=== PATIENT | male | born 1950 | race Caucasian/White ===

== ENCOUNTER 2017-04-25 10:23 | Day surgery (SDC) | payer MEDICARE, BC ==
[2017-04-19 11:47] VITALS: BMI 28.3
[~2017-04-25 10:23] MED LIST: LACTATED RINGERS 1,000 ML IV SCH
[2017-04-25] MEDS: PHENYLEPHRINE 10% OPHTH DROPS 5 ML BTL OP ONE ×3 (11:25→11:43)
[2017-04-25] MEDS: CYCLOPENTOLATE 1% OPHTH SOLN 2 ML BTL OP ONE ×3 (11:28→11:46)
[2017-04-25] MEDS: KETOROLAC 0.5% OPHTH DROPS 5 ML BTL OP ONE ×3 (11:31→11:49)
[2017-04-25 11:39] VITALS: TEMP 97.9
[2017-04-25] MEDS ORDERED: LIDOCAINE 1% INJ 10MG/ML (20 ML MDV) ONE (12:23)
[2017-04-25] MEDS ORDERED: PROPOFOL 10 MG/ML 20 ML VIAL IV ONE (12:23)
[2017-04-25] MEDS ORDERED: EPINEPHrine (PF) 0.5 ML in BALANCED SALT IRRIG SOLN COMB2 500 ML IRRIGATION ONE (12:32)
[2017-04-25] MEDS ORDERED: BALANCED SALT IRRIG SOLN COMB2 15 ML IRRIG.SOLN INTRAOCULA ONE (12:32)
[2017-04-25] MEDS ORDERED: TIMOLOL 0.5% OPHTH SOLN (PF) 0.2 ML DROPERETTE RIGHT EYE ONE (12:33)
[2017-04-25] MEDS ORDERED: HYALURONATE SODIUM INTRAOCULAR 1 EACH SYRINGE (10MG/ML) INTRAOCULA ONE (12:33)
--- NOTE | 2017-04-25 12:47 | P.OP ---
Date of Procedure: 04/25/17 Procedure(s) Performed: PREOPERATIVE DIAGNOSIS: Cataract, right eye. POSTOPERATIVE DIAGNOSIS: Cataract, right eye. OPERATION: Phacoemulsification cataract, right eye. DESCRIPTION OF PROCEDURE: The patient was taken to the preoperative holding area. Intravenous Propofol was given so as to bring about adequate sedation. The following mixture was given for local anesthesia: 5 mL of 2% lidocaine, 5 mL of 0.75% Marcaine, and 1 mL of Wydase. Approximately 4 mL was injected in the retrobulbar space of the surgical eye. Additional 1 mL was then directed to the temporal area of the surgical eye. This was performed to allow adequate neurological block of the facial muscles. The patient was revived and then taken into the operative room. The patient was prepped and draped in the usual sterile manner for the operative eye. A lid speculum was put into position. The conjunctiva was resected back from the limbus in the 12 o'clock position. Bleeding was controlled with electrocautery. A #69 blade was then used and a half-thickness scleral incision approximately 1-mm posterior to the limbus was made on bare sclera. This was shelved in the clear cornea using a crescent knife. Next a 15-degree blade was used to make a stab incision at the 3 o' clock position at the corneolimbal interface. Keratome blade was then used and the superior wound was extended into the anterior chamber. Viscoelastic was injected into the anterior chamber and to maintain its form. Next, a cystotome was used and a continuous anterior capsulotomy was made without difficulty. Hydrodissection using a blunt cannula and BSS was performed. Phaco probe was then employed and a groove extending from 12 to 6 o'clock in the lens was created. A Michael wand was used through the stab incision so as to perform a divide and conquer technique. Next an irrigation aspiration probe was utilized and any residual cortex was removed from the eye. Again, viscoelastic was injected into the anterior chamber. An Willian posterior chamber lens implant was placed in the cartridge and injected into the anterior chamber without difficulty. The Sinstuddexey hook was utilized to spin the lens into position and this was again performed without any difficulty. The irrigation and aspiration probe was again employed and any residual viscoelastic was removed from the eye. Then BSS was injected into the limbal stab incision and the anterior chamber re-inflated. The conjunctiva was reapproximated using electrocautery. One drop of 0.25% Timoptic was placed over the corneal along with TobraDex ophthalmic ointment. Two sterile patches and a Mcfadden eye shield were taped into position. The patient was transported to the recovery room in stable condition. Pathology: none sent Condition: stable Disposition: same day
[2017-04-25 12:52] VITALS: RESP 18
[2017-04-25 13:16] VITALS: BP 157/78; PULSE 68
[2017-04-25] MEDS ORDERED: BUPIVACAINE (PF) 0.75% 5 ML, LIDOCAINE 4% (PF) 5 ML, HYALURONIDASE, HUMAN RECOMB 150 UNIT MISCELLANE ONE ×3 (23:00)
[2017-04-25] MEDS ORDERED: GENTAMICIN/PREDNISOL AC OPHTH OINT 3.5GM OPHTHALMIC ONE (23:00)
[2017-04-25] MEDS ORDERED: TIMOLOL 0.5% OPHTH SOLN (PF) 0.2 ML DROPERETTE OP ONE (23:00)
== END 2017-04-25 13:36 | disposition home or self-care (01) ==
LOC: OR 10:23
PROVIDERS: ATTEND Ophthalmology
DX: H26.9 Unspecified cataract (principal); K52.9 Noninfective gastroenteritis and colitis, unspecified; I10 Essential (primary) hypertension; Z79.82 Long term (current) use of aspirin; Z79.899 Other long term (current) drug therapy
CPT/HCPCS: 66984; V2632; J2001 ×2; J3470; J0171; J2704

== ENCOUNTER → 2024-11-26 | Outpatient (CLI) | payer MEDICARE ==
[2024-11-26 14:49] LABS: INR 0.9 (<1.2); Partial Thromboplastin Time 23.4 sec (22.0-30.0); Prothrombin Time 10.4 sec (10.0-12.5)
[2024-11-26 20:47] LABS: ALT 25 U/L (10-49); AST 23 U/L (14-35); Albumin 4.4 g/dL (3.8-4.9); Alkaline Phosphatase 81 U/L (41-126); BUN/Creat Ratio 17.64 Ratio (12.00-20.00); Blood Urea Nitrogen 19.4 mg/dL (9.0-27.0); Calcium 9.5 mg/dL (8.7-10.3); Carbon Dioxide 24.9 mmol/L (21.6-31.8); Chloride 106 mmol/L (96-109); Globulin 2.2 g/dL (1.6-3.3); Glucose 115 mg/dL (70-110); Potassium 4.5 mmol/L (3.5-5.5); Sodium 141 mmol/L (135-145); Total Bilirubin 0.5 mg/dL (0.3-1.2); Total Protein 6.6 g/dL (6.2-8.2)
[2024-11-26 20:58] LABS: HCT 43.4 % (39.6-50.0); HGB 14.5 g/dL (13.0-17.0); MCH 31.3 pg (27.0-32.0); MCHC 33.4 g/dL (32.0-37.0); MCV 93.7 FL (80.0-97.0); Mean Platelet Volume 12.4 FL (9.5-12.2); NRBC Per 100 WBC 0 X 10*3/uL (0.00-0.01); Platelet Count 168 X 10*3/uL (140-440); RBC 4.63 X 10*6/uL (4.40-5.60); RDW 13.2 % (11.5-14.5); WBC 7.27 X 10*3/uL (4.50-10.00)
== END | disposition home or self-care (01) ==
LOC: LABPAT 13:55
PROVIDERS: ATTEND Orthopaedic Surgery
DX: Z01.818 Encounter for other preprocedural examination (principal); Z22.322 Carrier or suspected carrier of Methicillin resistant Staphylococcus aureus; M16.12 Unilateral primary osteoarthritis, left hip
CPT/HCPCS: 80053; 85027; 85610; 85730; 86850; 86900; 86901; 87070

== ENCOUNTER 2024-12-04 11:10 | Day surgery (SDC) | payer BC, MEDICARE ==
[~2024-12-04 11:10] MED LIST changes: +HYDROmorphone 0.5 MG/0.5 ML SYRINGE IVP PRN; -LACTATED RINGERS 1,000 ML IV SCH; +TRANEXAMIC 1,000 MG/100ML-NACL 1,000 MG in SALINE 1 100ML.BAG IV PRN; +TRANEXAMIC 1,000 MG/100ML-NACL 1,000 MG in SALINE 1 100ML.BAG IVPB PRN
[2024-12-04] MEDS: IV FLUID CONTINUATION 1,000 ML IV ONE ×3 (11:23→15:20)
[2024-12-04] MEDS: DOCUSATE 100 MG CAP PO PRN (11:46)
[2024-12-04] MEDS: oxyCODONE ER 10 MG TAB.ER.12H PO PRN (11:47)
[2024-12-04] MEDS: ACETAMINOPHEN TAB 500 MG TAB PO PRN (11:47)
[2024-12-04] MEDS: FAMOTIDINE 20 MG/2 ML VIAL IVP PRN (11:53)
[2024-12-04] MEDS: DEXAMETHASONE SOD PHOSPHATE 10 MG/ML 1 ML VIAL IV PRN (11:53)
[2024-12-04] MEDS: LACTATED RINGERS 1,000 ML IV SCH (11:53)
[2024-12-04] MEDS: ONDANSETRON 4 MG/2 ML VIAL IVP PRN (11:54)
[2024-12-04] MEDS: KETOROLAC 15 MG/ML 1 ML VIAL IVP PRN (11:54)
[2024-12-04] MEDS ORDERED: VANCOMYCIN IV PER PHARMACY 1 EACH MISC MISCELLANE PRN (12:07)
[2024-12-04] MEDS: MIDAZOLAM 2 MG/2 ML VIAL IV ONE (12:25)
[2024-12-04] MEDS: fentaNYL (PF) 50 MCG/ML 2 ML AMP IV PRN (12:25)
[2024-12-04] MEDS: VANCOMYCIN 1,250 MG in SODIUM CHLORIDE 0.9% 250 ML IVPB STA (12:35)
[2024-12-04] MEDS: ceFAZolin 2 GM in DEXTROSE 5% IN WATER 50 ML IVPB PRN (12:46)
[2024-12-04] MEDS: ROPIVACAINE/EPI/CLONIDINE/KET 50 ML SYRINGE MISCELLANE PRN (13:06)
--- NOTE | 2024-12-04 13:06 | P.ANPRN ---
Procedure Note - Anesthesia - Nerve Block Performed Left Gio Single Time Out Performed: Yes Date of Procedure: 12/04/24 Procedure Start Time: : Procedure Stop Time: : Location of Patient: PreOp Indication: Acute Post-Operative Pain, Requested by Surgeon Sedation Type: Sedate with meaningful contact maintained Preparation: Sterile Prep Position: Supine Needle Types: Pajunk Needle Gauge: 21 Ultrasound used to visualize needle placement: Yes Ultrasound used to observe medication spread: Yes Injectate: 0.5% Ropivacaine (see comment for volume) (30 ml + 4 mg Dexamethas one) Blood Aspirated: No Pain Paresthesia on Injection Noted: No Resistance on Injection: Normal Image Stored and Saved: Yes Events: Uneventful and Well Tolerated
[2024-12-04] MEDS: VANCOMYCIN 1,000 MG VIAL MISCELLANE ONE (15:45)
--- NOTE | 2024-12-04 16:27 | FL ---
EXAMINATION TYPE: FL guidance operating room, XR Hip Limited LT DATE OF EXAM: 12/04/2024 FLUOROSCOPY anterior hip dap 1.2175 fl time 33.2 7 images sent [address] PACS Dr Esposito 7 images are provided for intraoperative fluoroscopy during left hip total arthroplasty. There is silver cement of acetabular cup with single screw and femoral stem components for the severe left hip osteop orosis. Final image shows gross anatomic alignment. Multiple surgical clips on both sides of the pelv is. [facility], , 12/04/2024 4:24 PM
--- NOTE | 2024-12-04 16:33 | P.OP ---
Date of Procedure: 12/04/24 Preoperative Diagnosis: 1. Severe left hip osteoarthritis 2. 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 History of colostomy 4. History of staph infection Postoperative Diagnosis: 1. Severe left hip osteoarthritis 2. 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 History of colostomy 4. History of staph infection Procedure(s) Performed: 1. Left direct anterior conversion total hip arthroplasty (conversion of hip pinning to total hip arthroplasty) 2. Application of negative pressure incisional wound VAC, left hip, DME, incision 15 cm, less than 50 cm Modifier 22 for increased procedural complexity: Justification: This operation required significantly more time, work, and procedural complexity than a standard primary or revision total joint arthroplasty. Specifically the prior traumatic changes and or surgical procedure left a significantly altered surgical field with resultant scar tissue, adhesions, and altered anatomy that required a longer and more difficult and complex surgical dissection. This patient required: Technically demanding removal of prior hardware Osteotomy for implant removal and exposure Significantly prolonged operative time All of the above result in a physically and mentally challenging operative procedure that in my professional opinion necessitates a 30% increase above standard the schedule Implants: 1. Umang Trident II Acetabular Cup, Size #52 2. Umang Accolade C Size # 5 Femoral Stem, /High Offset 3. Biolox delta femoral head, 36 mm, - 2.5 mm neck Anesthesia: VINH Surgeon: Romero Esposito Cyber Security Consultant #1: Roe Greene Estimated Blood Loss (ml): 300 IV fluids (ml): 800 Pathology: none sent Condition: stable Disposition: PACU Indications for Procedure: The patient is a very pleasant 73-year-old male who presented to my office with severe left hip arthritis. Briefly the patient underwent left hip pinning for a left hip SCFE by Dr. Mclean in the 1960s. He did well for several decades but then developed end-stage arthritis. In addition to the patient's left hip arthritis he also has a history of a colostomy and prior infections. He states that he has not had any staph infections in at least 5 years but does have a history of getting infections after surgery. My recommendation was to proceed with a left total hip replacement, converting his prior hip pinning to a total hip arthroplasty. The patient understands his elevated risk of having a complication due to the complexity of surgery and his medical risks. I had a long discussion with the patient in the office on the potential risks and complications of an elective total hip replacement through a direct anterior approach. Risks discussed include, but are certainly not limited to, risks from anesthesia, superficial infection requiring local wound care or antibiotics, deep phil-prosthetic joint infection and the treatment required to eradicate infection, intraoperative fracture, postoperative periprosthetic fracture, damage to local blood vessels or nerves particularly the lateral femoral cutaneous nerve, delayed wound healing requiring local wound care or possibly surgical debridement, hip dislocation, leg length discrepancy, soft tissue irritation around the total hip implant such as iliopsoas tendinitis or trochanteric bursitis, wear and osteolysis from the implants, squeaking or audible noises, groin pain, thigh pain, heterotopic ossification, stiffness, aseptic loosening of the implants, dissatisfaction with surgical outcome, need for revision surgery, DVT, PE, swelling of the operative extremity, acute coronary event, stroke, failure to thrive, and possibly loss of life or limb. The patient understands that while these are the most common complications after an elective hip replacement there are certainly other less common complications possible. They were given ample time to ask questions regarding the potential complications of a hip replacement. Following our discussion the patient provided their verbal and written consent to go forward with an elective total hip replacement. Operative Findings: The patient had severe hip osteoarthritis. The pin in the left hip was completely overgrown with bone laterally. Description of Procedure: The patient was identified in the preoperative holding area and the correct hip was marked with my initials. I reviewed the procedure and consent with the patient. All of their questions were answered. The patient was then brought back into the operating room by anesthesia. While on the [facility] anesthesia was administered by the anesthesia team. Preoperative antibiotics and tranexamic acid were also given. After the patient was under anesthesia I examined their ankles to determine their preoperative leg length discrepancy. The skin over the anterior aspect of the hip was shaved to remove hair over the site of planned incision. Both feet and ankles were padded with webril and boots for the Ola were applied. The patient was then carefully transferred onto the Ola table. A perineal post was immediately placed. The arms were placed on arm holders and were well-padded. Both boots were secured to the spars on the Ola table. The patient was positioned so that the pelvis was centered over the post. Nonsterile drapes were applied. A timeout was performed identifying the correct patient, operative extremity, and procedure. At this point fluoroscopy was brought in to take preoperative images of the pelvis and operative hip. Usi ng the standing AP pelvis from the office as a template, a comparable image was obtained with fluoroscopy. A metallic bar was used to create a bi-ischial line for use as a reference to leg length adjustments during the procedure. Global offset was also measured on both the operative and nonoperative leg. Fluoroscopy was then brought out and a pre-scrub using a chlorhexidine scrub brush was performed. The operative limb was then prepped and draped in the standard sterile fashion. An anterior longitudinal incision was made lateral and distal to the ASIS. The skin and subcutaneous tissues were incised sharply. The underlying tensor fascia was identified and incised in its midportion. The fascia was dissected free from the underlying muscle and the muscle belly was retracted. A blunt tipped cobra retractor was placed over the superior neck under the muscle fibers of the gluteus minimus. The deep enveloping fascia of the tensor was incised. The anterior leash of vessels were then identified and cauterized. The fascia between the rectus and the capsule was then incised and the pre-capsular fat was excised. A second Cobra was placed inferior to the neck. The interval between the rectus and iliocapsularis and the hip capsule was developed and a retractor was placed carefully over the anterior rim of the acetabulum. A T-shaped anterior capsulotomy was performed. The superior capsular leaflet was left in place in the inferior capsular flap was excised. The Cobra retractors were placed intracapsularly. We then made a femoral neck osteotomy according to preoperative and intraoperative templating and confirmed the level of the osteotomy using fluoroscopic imaging. The superior capsular flap was excised. At this point a second osteotomy was made with a saw just proximal in the neck to the prior osteotomy. The saw was used to carefully remove bone around the screw. The napkin ring of bone was carefully removed. It took significant operative time to carefully remove all of the bone around the screw. The femoral head was also removed piecemeal. Once the screw was exposed and the head had been removed piecemeal I gently dislocated the screw from the aceta bulum and dropped the leg using the table. I carefully tried using a bone tamp and mallet to remove the screw through the lateral cortex of the femur but was unable to do so. The leg was then carefully brought up and the screw placed in the socket. 2 cm of the lateral incision over the prior scar were made and dissection was carried down carefully to the lateral cortex of the femur. Using fluoroscopy the location of the screw was identified. It had been completely overgrown with bone. It was exceedingly difficult and tedious requiring extended operative time but I was able to carefully remove all of the bone around the base of the screw and I ultimately had to make an osteotomy of the bone around the screw head using osteotomes and a curette. Attention was then placed back to the anterior incision. The leg was dropped and I gently tried tapping the screw out of the lateral femur. I was still unable to do so due to the size of the threads and embedded bone. At this point using a mahad tipped [employer] saw the screw was cut just distal to the threads. The threaded portion of the screw was then removed. Using a bone tamp and a mallet the smooth portion of the screw was carefully tapped out the lateral cortex of the femur. Fluoroscopy was used to make sure there were not any inadvertent fractures. Bone wax was pressurized into the lateral femur at the site of the screw hole. Attention was then placed back to the acetabulum. Retractors were placed circumferentially exposing the acetabulum. We then circumferentially debrided the acetabulum free of labrum and osteophytes. The pulvinar was removed to fully visualize the cotyloid fossa. We then sequentially reamed to achieve peripheral fit and excellent bleeding subchondral bone. The socket was thoroughly irrigated. The acetabular component was impacted into the appropriate position using fluoroscopy to guide version, inclination, and depth of insertion taking care to have a comparable image of the AP pelvis to the standing image taken in the office. An excellent press-fit was achieved and final position was confirmed using fluoroscopy. The press fit was augmented with bony cancellus dome screws. The liner was then impacted into the socket. Attention was then turned to the femur. The remnant dorsal lateral capsule was excised. The short external rotators were visible and protected. A bone hook was used to confirm appropriate translation of the trochanter away from the acetabulum. The leg was then extended and adducted and the bone hook was used to elevate the femur for broaching. On inspection of the patient's proximal femur, they appeared to have poor bone quality so I elected to proceed with cemented fixation of the femoral component. A box osteotome and blunt tipped canal sound was then utilized to gain access to the femoral canal. We then sequentially broached the femur in appropriate anteversion until torsional stability was achieved and the implant was felt to have reached the appropriate size to allow trialing. The neck cut was brought flush to the trial broach with a calcar planar. A trial neck and head were then placed onto the broach and the hip was atraumatically reduced under direct visualization. External rotation to 90 was performed to assess stability. Fluoroscopy was brought in. An AP and lateral fluoroscopic image of the proximal femur was obtained to assess position and fill of the trial broach. An AP of the pelvis was then obtained and matched to the preoperative image taken. A bi-ischial bar was then placed and measurements were taken to assess changes in length and offset. The hip was then carefully dislocated, the proximal femur was exposed, and the trial implants were removed. The proximal femur was then prepared for cementing. The canal was thoroughly irrigated with pulsatile lavage to remove blood and marrow contents. A cement restrictor was placed to a depth just distal to the tip of the final implant. Epinephrine-soaked gauze was then packed into the proximal femur. 2 bags of cement were then mixed using a centrifuge and placed into a cement gun. Anesthesia was notified that cementing was about to commence to make sure the patient was appropriately ventilated and hydrated. Once the cement had reached appropriate consistency, the cement gun was used to fill the canal in a retrograde fashion starting at the restrictor. Cement was then pressurized into the canal with a blue tipped dye jig operator. The stem was then carefully introduced into the cement taking care to guide the implant into appropriate version. The stem was held in position until the cement had fully set. All extra cement was removed while the cement was hardening. The trunnion was cleansed and the final head was tapped into place to engage the Chavez taper. The acetabulum was irrigated and visualized to be free of debris. The hip was carefully reduced. Stability was checked clinically with external rotation to 90 and there was no evidence of instability. Final fluoroscopic images were taken. The wound was then thoroughly irrigated and soaked with a dilute Betadine rinse for 3 minutes. 3 L of sterile saline was irrigated through the wound using pulsatile lavage. Local anesthetic cocktail was injected into the soft tissues around the surgical field. 2 g of vancomycin was placed both in the anterior and lateral incision . the wound was then closed in layers. Due to the patient's risk factors an incisional wound VAC was placed over the closed anterior hip and a sterile dressing was placed over the lateral surgical incision. The drapes were taken down and the patient was carefully transferred off of the Ola table. Following removal of the boots the leg lengths felt acceptable. The patient was then taken to recovery room having tolerated the procedure well. Roe Greene PA-C was required as a skilled printer's assistant due to the complexity of surgery for patient positioning, draping, exposure, retraction, closure of wound and application of dressing. PLAN: The patient can weight-bear as tolerated on the operative extremity. 2 doses of postoperative antibiotics. DVT prophylaxis with aspirin 81 mg twice a day based on preoperative risk stratification. Physical therapy for gait training. The patient will be treated with doxycycline 100 mg twice daily for 6 weeks or until his incisions are healed.
[2024-12-04] MEDS ORDERED: HYDROmorphone 0.5 MG/0.5 ML SYRINGE IVP PRN ×3 (16:42)
[2024-12-04] MEDS ORDERED: MAGNESIUM HYDROXIDE 2,400 MG/30 ML CUP PO PRN (16:42)
[2024-12-04] MEDS ORDERED: ONDANSETRON 4 MG/2 ML VIAL IVP PRN (16:42)
[2024-12-04] MEDS ORDERED: NALOXONE 0.4 MG/ML 1 ML VIAL IV PRN (16:42)
[2024-12-04] MEDS: SODIUM CHLORIDE 0.9% 1,000 ML IV SCH (18:55)
[2024-12-04] MEDS: ASPIRIN 81 MG PO SCH (20:35)
[2024-12-04] MEDS: SENNOSIDES-DOCUSATE SODIUM 1 EACH TAB PO SCH (20:35)
[2024-12-04] MEDS: ceFAZolin 2 GM in DEXTROSE 5% IN WATER 50 ML IVPB SCH (20:35)
[2024-12-04] MEDS: HYDROcodone/APAP 5-325MG 1 EACH TAB PO PRN (21:44)
[2024-12-04] MEDS: METOPROLOL SUCCINATE (ER) 25 MG TAB.ER.24H PO SCH (21:45)
[2024-12-04] MEDS: hydrALAZINE HCL 50 MG TAB PO SCH (21:47)
[2024-12-04] MEDS: DORZOLAMIDE-TIMOLOL 2.23%/0.68 10ML BTL LEFT EYE SCH (22:08)
[2024-12-04] MEDS: LATANOPROST 0.005% OPHTH DROPS 2.5 ML BTL LEFT EYE SCH (22:08)
[2024-12-05] MEDS: LOSARTAN 50 MG TAB PO SCH (07:34)
[2024-12-05] MEDS: ATORVASTATIN 10 MG TAB PO SCH (07:35)
[2024-12-05] MEDS: HYDROcodone/APAP 10-325MG 1 EACH TAB PO PRN (07:35)
[2024-12-05 08:23] LABS: Basophils # (A) 0.02 X 10*3/uL (0.00-0.10); Basophils % (A) 0.1 %; Eosinophils # (A) 0 X 10*3/uL (0.04-0.35); Eosinophils % (A) 0 %; HCT 34.8 % (39.6-50.0); Lymphocytes # (A) 0.76 X 10*3/uL (0.90-5.00); Lymphocytes % (A) 4.7 %; MCH 30.1 pg (27.0-32.0); MCHC 31.6 g/dL (32.0-37.0); MCV 95.3 FL (80.0-97.0); Mean Platelet Volume 12.2 FL (9.5-12.2); Monocytes # (A) 1.14 X 10*3/uL (0.20-1.00); Monocytes % (A) 7.1 %; NRBC Per 100 WBC 0 X 10*3/uL (0.00-0.01); Neutrophils # (A) 14.12 X 10*3/uL (1.80-7.70); Neutrophils % (A) 87.7 %; Platelet Count 140 X 10*3/uL (140-440); RBC 3.65 X 10*6/uL (4.40-5.60); RDW 13.7 % (11.5-14.5); WBC 16.11 X 10*3/uL (4.50-10.00)
--- NOTE | 2024-12-05 08:33 | P.PN ---
Subjective Progress Note Date: 12/05/24 No acute events overnight. Patient is doing well this morning. They have walked to the bathroom with a walker and assistance. They deny chest pain or shortness of breath. They continue to have left hip pain as expected after surgery. Objective - Vital Signs Vital signs: Vital Signs Temp 97.8 F 12/05/24 01:55 Pulse 80 12/05/24 01:55 Resp 16 12/05/24 01:55 BP 105/62 12/05/24 01:55 Pulse Ox 95 12/05/24 01:55 FiO2 Intake & Output 12/04/24 12/05/24 12/05/24 18:59 06:59 18:59 Intake Total 1750 1080 Output Total 300 Balance 1450 1080 Weight 87.7 kg Intake: IV 1750 Oral 1080 Output: Estimated Blood Loss 300 Other: # Voids 2 - Exam Patient was examined at bedside. Patient is resting comfortably in bed. No apparent distress. They are awake, alert and able to answer questions. Inspection: The surgical wound VAC is intact. The OpSite over the lateral incision had some strikethrough, this was replaced. The skin surrounding the dressing is free of erythema. There is mild swelling in the operative thigh. Palpation: The operative calf is soft to compression. No calf tenderness. Neurovascular: Operative femoral nerve function is intact. The patient is able to actively plantarflex and dorsiflex their operative ankle and toes. Operative extremity sensation is intact to light touch throughout. Their operative foot appears well perfused, palpable dorsalis pedis pulse, and capillary refill under 2 seconds. - Labs CBC & Chem 7: 12/05/24 04:49 Labs: Abnormal Lab Results - Last 24 Hours (Table) 12/05/24 Range/Units 04:49 WBC 16.11 H (4.50-10.00) X 10*3/uL RBC 3.65 L (4.40-5.60) X 10*6/uL Hgb 11.0 L (13.0-17.0) g/dL Hct 34.8 L (39.6-50.0) % MCHC 31.6 L (32.0-37.0) g/dL Immature Gran # 0.07 H (0.00-0.04) X 10*3/uL Neutrophils # 14.12 H (1.80-7.70) X 10*3/uL Lymphocytes # 0.76 L (0.90-5.00) X 10*3/uL Monocytes # 1.14 H (0.20-1.00) X 10*3/uL Eosinophils # 0 L (0.04-0.35) X 10*3/uL Assessment and Plan Assessment: Postop day 1 status post Left direct anterior conversion total hip arthroplasty (conversion of hip pinning to total hip arthroplasty), and Application of negative pressure incisional wound VAC Left hip osteoarthritis Left hip pain Multiple medical problems Plan: Weight-bear as tolerated on the operative extremity. Use a walker to ambulate. Prescription for walker was placed in patient's chart. Leave surgical dressing in place. Reinforce with Tegaderm as needed. Physical therapy for gait training and mobilization. We appreciate internal medicine for perioperative medical management. Patient has oral pain medicine at home that they can resume at home. Disposition: Plan to discharge home tomorrow. Dictation was produced using [employer] dictation software, please excuse any grammatical, word or spelling errors.
--- NOTE | 2024-12-05 11:13 | P.CONS ---
History of Present Illness - Reason for Consult Consult date: 12/05/24 Medical management - Chief Complaint Left total hip arthroplasty - History of Present Illness Patient is a 73-year-old male with a past medical history of hypertension, hyperlipidemia, osteoarthritis, history of prostate cancer, ulcerative colitis and hearing disorder/deafness was admitted to hospital for elective left total hip arthroplasty. Patient underwent left direct anterior conversion total hip arthroplastyconversion of hip pinning to total hip arthroplasty and application of negative pressure incisional wound VAC. Patient is postoperative day 1. Currently pain is controlled with pain pump. No complaints of nausea vomiting abdominal pain or diarrhea. Denies any dizziness or lightheadedness. Patient has been afebrile. Denied any dysuria or hematuria. No chest pain or shortness of breath. Blood pressure this morning 124/65 pulse 72 respiration 16 pulse ox 96% on room air. Laboratory data showed WBC 16.1 hemoglobin 11.0 and platelets 140. Neutrophils 14.1. Review of Systems Constitutional: Patient denies any fever or chills . No generalized weakness or weight loss. Abdomen: Patient denied nausea vomiting and diarrhea and abdominal pain. Cardiovascular: Patient denies any chest pain or short of breath no palpitations. Respiratory: patient denied any cough or sputum production. No shortness of breath Neurologic: Patient denied any numbness or tingling. no headache. Musculoskeletal: Patient denies any complaints of joint swelling or deformity. Skin: Negative Psychiatric: Negative Endocrine: No heat or cold intolerance. No recent weight gain. Genitourinary: No dysuria or hematuria. All other 14 point ROS negative except the above Past Medical History Past Medical History: Cancer, Eye Disorder, Hearing Disorder / Deafness, Hyperlipidemia, Hypertension, Osteoarthritis (OA), Prostate Disorder Additional Past Medical History / Comment(s): Hx of Prostate CA & Ulcerative Colitis; has ileostomy; glaucoma left eye, has hearing aids-doesn't always wear, wears snore appliance. History of Any Multi-Drug Resistant Organisms: None Reported Past Surgical History: Appendectomy, Heart Catheterization, Orthopedic Surgery, Prostate Surgery Additional Past Surgical History / Comment(s): Pin in left hip as a child; Colectomy 1995; R Rotator cuff repair x 2; prostate removed & radiation tx; [place] cataract surg Past Anesthesia/Blood Transfusion Reactions: No Reported Reaction Past Psychological History: No Psychological Hx Reported Smoking Status: Never smoker Past Alcohol Use History: None Reported Past Drug Use History: None Reported - Past Family History Mother Family Medical History: Cancer Additional Family Medical History / Comment(s): lung ca Father Family Medical History: CVA/TIA Medications and Allergies Home Medications Medication Instructions Recorded Confirmed Type Aspirin [Adult Low Dose Aspirin EC] 81 mg PO DAILY 04/19/17 12/04/24 History Atorvastatin [Lipitor] 10 mg PO DAILY 04/19/17 12/04/24 History Metoprolol Succinate (ER) [Toprol 25 mg PO HS 04/19/17 12/04/24 History Xl] Dorzolamide-Timol 2.23%/0.68% 1 drop LEFT EYE BID 11/28/24 12/04/24 History [Cosopt] Latanoprost [Latanoprost 0.005%] 1 drop LEFT EYE HS 11/28/24 12/04/24 History Losartan Potassium [Cozaar] 100 mg PO DAILY 11/28/24 12/04/24 History hydrALAZINE HCL [Apresoline] 100 mg PO BID 11/28/24 12/04/24 History Doxycycline Monohydrate 100 mg PO BID-W/MEALS #84 cap 12/05/24 Rx Allergies Allergy/AdvReac Type Severity Reaction Status Date / Time No Known Allergies Allergy Verified 12/04/24 11:45 Physical Exam Vitals: Vital Signs Temp Pulse Resp BP Pulse Ox 12/05/24 07:16 97.5 F L 72 16 124/65 96 12/05/24 01:55 97.8 F 80 16 105/62 95 12/04/24 18:46 76 125/69 94 L 12/04/24 18:31 76 137/68 94 L 12/04/24 18:16 73 137/67 93 L 12/04/24 18:01 97.5 F L 80 16 134/71 94 L 12/04/24 17:45 75 16 121/62 96 12/04/24 17:30 73 16 102/61 97 12/04/24 17:15 77 16 108/58 99 12/04/24 17:00 65 16 90/49 98 12/04/24 16:46 82 18 125/67 98 12/04/24 12:40 169/86 12/04/24 11:52 203/91 12/04/24 11:47 97.8 F 75 16 96 Intake and Output 12/04/24 12/05/24 12/05/24 22:59 06:59 14:59 Intake Total 700 1080 Balance 700 1080 Intake: IV 700 Oral 1080 Other: # Voids 1 2 Weight 87.7 kg PHYSICAL EXAMINATION: Patient is lying in the bed comfortably, no acute distress, awake alert and oriented.. HEENT: Normocephalic. Neck is supple. Pupils reactive. Nostrils clear. Oral cavity is moist. Neck reveals no JVD, carotid bruits, or thyromegaly. CHEST EXAMINATION: Trachea is central. Symmetrical expansion. Lung lane clear to auscultation and percussion. CARDIAC: Normal S1, S2 with no gallops. No murmurs ABDOMEN: Soft. Bowel sounds normal. No organomegaly. No abdominal bruits. Extremities: reveal no edema. No clubbing or cyanosis Neurologically awake, alert, oriented x3 with well-coordinated movements. No focal deficits noted Skin: No rash or skin lesions. Psychiatric: Coperative. Nonsuicidal Musculoskeletal: No joint swelling or deformity. Left hip surgical site with wound VAC. Results CBC & Chem 7: 12/05/24 04:49 Labs: Abnormal Lab Results - Last 24 Hours (Table) 12/05/24 Range/Units 04:49 WBC 16.11 H (4.50-10.00) X 10*3/uL RBC 3.65 L (4.40-5.60) X 10*6/uL Hgb 11.0 L (13.0-17.0) g/dL Hct 34.8 L (39.6-50.0) % MCHC 31.6 L (32.0-37.0) g/dL Immature Gran # 0.07 H (0.00-0.04) X 10*3/uL Neutrophils # 14.12 H (1.80-7.70) X 10*3/uL Lymphocytes # 0.76 L (0.90-5.00) X 10*3/uL Monocytes # 1.14 H (0.20-1.00) X 10*3/uL Eosinophils # 0 L (0.04-0.35) X 10*3/uL Assessment and Plan Assessment: Status post left direct anterior conversion of hip pinning to total arthroplasty and application of wound VAC. Postoperative day 1 Leukocytosis likely due to post surgical inflammation. Rule out infection. Hypertension Hyperlipidemia Hearing disorder/deafness History of prostate cancer cancer status post surgery Ulcerative colitis with history of ileostomy Glaucoma left eye GI and DVT prophylaxis as per primary team Plan: Patient will be continued on pain management, bowel regimen and encourage incentive spirometry. Start back on blood pressure medications and titrate dose as needed. Patient is on aspirin 81 mg twice daily for DVT prophylaxis. Current with PT OT. Further recommendations. Based on the clinical course. Follow-up repeat labs tomorrow. Thank you kindly for your consult. Time with Patient: Greater than 30
[2024-12-06 07:43] VITALS: BP 94/49; PULSE 72; TEMP 98.2
[2024-12-06 08:36] LABS: BUN/Creat Ratio 25.83 Ratio (12.00-20.00); Calcium 8.6 mg/dL (8.7-10.3); Carbon Dioxide 20.8 mmol/L (21.6-31.8); Chloride 106 mmol/L (96-109); Glucose 109 mg/dL (70-110); Potassium 3.9 mmol/L (3.5-5.5); Sodium 138 mmol/L (135-145)
[2024-12-06 10:05] VITALS: RESP 18
--- NOTE | 2024-12-06 10:09 | P.DS ---
Providers Attending physician: Romero Esposito Consults: 12/04/24 16:42 Consult Physician Routine Consulting Provider: Tadeo Yousif Reason/Comments: post op medical management Do you want consulting provider notified?: Yes Primary care physician: Taedo Yousif [facility] Course: This is a 73-year-old patient, with past medical history of severe hip osteoarthritis, who failed nonsurgical conservative management. On 12/04/2024 the patient presented to the [facility] pre-op department for scheduled Left direct anterior conversion total hip arthroplasty (conversion of hip pinning to total hip arthroplasty), with Dr. Esposito. The patient tolerated the procedure well. The patient was transferred to the orthopedic floor. The patient had no acute events over night. The patient's pain has been well-controlled. Patient was examined at bedside. Patient is resting comfortably in bed. No apparent distress. They are awake, alert and able to answer questions. Inspection: The surgical wound VAC and dressing dressing is intact, the OpSite over the lateral incision was replaced today. The skin surrounding the dressing is free of erythema. There is mild swelling in the operative thigh. Palpation: The operative calf is soft to compression. No calf tenderness. Neurovascular: Operative femoral nerve function is intact. The patient is able to actively plantarflex and dorsiflex their operative ankle and toes. Operative extremity sensation is intact to light touch throughout Their operative foot appears well perfused, palpable dorsalis pedis pulse, and capillary refill under 2 seconds. Patient worked with physical therapy and it was determined they could discharge home. Plan to discharge home today. Plan follow up in two weeks in our office. Please see med rec for a list of accurate medications. Dictation was produced using [employer] dictation software, please excuse any grammatical, word or spelling errors. Assessment: Postop day 2 status post Left direct anterior conversion total hip arthroplasty (conversion of hip pinning to total hip arthroplasty), and Application of negative pressure incisional wound VAC Left hip osteoarthritis Left hip pain Multiple medical problems Plan - Discharge Summary Discharge Rx Participant: No New Discharge Prescriptions: New Doxycycline Monohydrate 100 mg PO BID-W/MEALS #84 cap No Action Metoprolol Succinate (ER) [Toprol Xl] 25 mg PO HS Atorvastatin [Lipitor] 10 mg PO DAILY Aspirin [Adult Low Dose Aspirin EC] 81 mg PO DAILY Dorzolamide-Timol 2.23%/0.68% [Cosopt] 1 drop LEFT EYE BID Latanoprost [Latanoprost 0.005%] 1 drop LEFT EYE HS hydrALAZINE HCL [Apresoline] 100 mg PO BID Losartan Potassium [Cozaar] 100 mg PO DAILY Discharge Medication List Aspirin [Adult Low Dose Aspirin EC] 81 mg PO DAILY 04/19/17 [History] Atorvastatin [Lipitor] 10 mg PO DAILY 04/19/17 [History] Metoprolol Succinate (ER) [Toprol Xl] 25 mg PO HS 04/19/17 [History] Dorzolamide-Timol 2.23%/0.68% [Cosopt] 1 drop LEFT EYE BID 11/28/24 [History] Latanoprost [Latanoprost 0.005%] 1 drop LEFT EYE HS 11/28/24 [History] Losartan Potassium [Cozaar] 100 mg PO DAILY 11/28/24 [History] hydrALAZINE HCL [Apresoline] 100 mg PO BID 11/28/24 [History] Doxycycline Monohydrate 100 mg PO BID-W/MEALS #84 cap 12/05/24 [Rx] Follow up Appointment(s)/Referral(s): [facility] [NON-STAFF] - As Needed (walker) [facility] [NON-STAFF] - As Needed Romero Esposito MD [Medical Doctor] - 2 Weeks Activity/Diet/Wound Care/Special Instructions: 1. Weight-bear as tolerated on your operative extremity unless instructed otherwise. Use a walker or other assistive device to ambulate. 2. Leave surgical dressing and wound VAC in place. If your dressing becomes saturated with blood, there is drainage, or the dressing becomes loose please contact the office. 3. It is okay to shower with your surgical dressing, but do not submerge in water (no hot tubs, bath's, swimming etc.) 4. Take your blood clot prevention medication as prescribed (aspirin, Eliquis, Xarelto, and Plavix are commonly prescribed medications for blood clot prevention) 5. While taking [place] or Percocet for pain take a stool softener (Ex: Colace) and drink lots of water. 6. Keep all follow-up appointments as scheduled. You will usually be seen in 1-2 weeks following surgery. 7. Please contact the office with any questions or concerns [phone] Discharge Disposition: HOME WITH HOME HEALTH SERVICES
--- NOTE | 2024-12-09 10:02 | P.PN ---
Subjective Progress Note Date: 12/06/24 - Reason for Consult Consult date: 12/05/24 Medical management - Chief Complaint Left total hip arthroplasty - History of Present Illness Patient is a 73-year-old male with a past medical history of hypertension, hy perlipidemia, osteoarthritis, history of prostate cancer, ulcerative colitis and hearing disorder/deafness was admitted to hospital for elective left total hip arthroplasty. Patient underwent left direct anterior conversion total hip arthroplastyconversion of hip pinning to total hip arthroplasty and application of negative pressure incisional wound VAC. Patient is postoperative day 1. Currently pain is controlled with pain pump. No complaints of nausea vomiting abdominal pain or diarrhea. Denies any dizziness or lightheadedness. Patient has been afebrile. Denied any dysuria or hematuria. No chest pain or shortness of breath. Blood pressure this morning 124/65 pulse 72 respiration 16 pulse ox 96% on room air. Laboratory data showed WBC 16.1 hemoglobin 11.0 and platelets 140. Isaias trophils 14.1. 12/06/2024 Patient is seen in follow-up status post left total knee arthroplasty. Patient is doing well and her work with physical therapy reports will be going home today. Patient with incentive spirometer at the bedside encouraged to increase use at least 10 times every hour while awake. Patient also with mildly elevated white count recommend outpatient follow-up and a prescription has been provided most likely reactive as patient denies any shortness of breath or cough or bu rning with urination. Patient does not appear infectious at all. Patient reports he did undergo presurgical clearance with primary care provider. Patient is medically stable once cleared by discharge. Review of systems: Constitutional: No reports of fatigue, fever, or chills Cardiovascular: No reports of chest pain or palpitations Respiratory: No reports of shortness of breath or cough GI: No reports of nausea, vomiting, or diarrhea : No reports of dysuria or retention Neurovascular: reports of generalized weakness with some left hip pain All medications have been reviewed PHYSICAL EXAMINATION: Patient is lying in the bed comfortably, no acute distress, awake alert and oriented.. HEENT: Normocephalic. Neck is supple. Pupils reactive. Nostrils clear. Oral cavity is moist. Neck reveals no JVD, carotid bruits, or thyromegaly. CHEST EXAMINATION: Trachea is central. Symmetrical expansion. Lung lane clear to auscultation and percussion. CARDIAC: Normal S1, S2 with no gallops. No murmurs ABDOMEN: Soft. Bowel sounds normal. No organomegaly. No abdominal bruits. Extremities: reveal no edema. No clubbing or cyanosis Neurologically awake, alert, oriented x3 with well-coordinated movements. No focal deficits noted Skin: No rash or skin lesions. Psychiatric: Coperative. Nonsuicidal Musculoskeletal: No joint swelling or deformity. Left hip surgical site with wound VAC. Assessment: Status post left direct anterior conversion of hip pinning to total arthroplasty and application of wound VAC. Postoperative day 2 Leukocytosis likely due to post surgical inflammation. Ruled out infection. Hypertension Hyperlipidemia Hearing disorder/deafness History of prostate cancer cancer status post surgery Ulcerative colitis with history of ileostomy Glaucoma left eye GI and DVT prophylaxis as per primary team Full code Plan: Patient will be continued on pain management, bowel regimen and encourage incentive spirometry. Patient has incentive spirometer at the bedside recommend to take home and continue using at least 10 times every hour while awake Home medications reviewed and resumed as appropriate PT/OT therapy evaluated the patient and will be going home Mildly elevated white count, likely reactive, recommend outpatient follow-up with repeat labs in the next few days Patient is medically stable once cleared by orthopedics Thank you kindly for this consultation. We will continue to follow during hospitalization. The impression and plan of care has been dictated by Rosalba Baum, Nurse Practitioner as directed. Dr. Anoop MD I have performed a history and examination and MDM of this patient, discussed the same with the dictator, and agree with the dictator's assessment and plan as written ,documented as a scribe. Based on total visit time, I have performed more than 50% of the visit. Objective - Vital Signs Vital signs: Vital Signs Temp 98.2 F 12/06/24 06:54 Pulse 72 12/06/24 06:54 Resp 18 12/06/24 10:04 BP 94/49 12/06/24 06:54 Pulse Ox 96 12/06/24 06:54 FiO2 Intake & Output 12/05/24 12/06/24 12/06/24 18:59 06:59 18:59 Intake Total 180 Balance 180 Intake: Oral 180 Other: Voiding Method Toilet Toilet # Voids 3 1 - Labs CBC & Chem 7: 12/05/24 04:49 05/16/25 04:57 Labs: Abnormal Lab Results - Last 24 Hours (Table) 12/06/24 Range/Units 04:57 Carbon Dioxide 20.8 L (21.6-31.8) mmol/L BUN 31.0 H (9.0-27.0) mg/dL BUN/Creatinine Ratio 25.83 H (12.00-20.00) Ratio Calcium 8.6 L (8.7-10.3) mg/dL
== END 2024-12-06 11:12 | disposition home health service (06) ==
LOC: OR 11:10 → 4SSUR 16:40 → OR 12-06 11:12
PROVIDERS: ATTEND Orthopaedic Surgery
DX: M16.12 Unilateral primary osteoarthritis, left hip (principal); E78.5 Hyperlipidemia, unspecified; G89.18 Other acute postprocedural pain; H91.90 Unspecified hearing loss, unspecified ear; I10 Essential (primary) hypertension; K51.90 Ulcerative colitis, unspecified, without complications; M81.0 Age-related osteoporosis without current pathological fracture; Z79.82 Long term (current) use of aspirin; Z79.899 Other long term (current) drug therapy; Z85.46 Personal history of malignant neoplasm of prostate; Z90.49 Acquired absence of other specified parts of digestive tract; Z93.2 Ileostomy status; Z93.3 Colostomy status; Z86.19 Personal history of other infectious and parasitic diseases
CPT/HCPCS: 97116; 97161; 64473; 80048; 85025; 73501; 27130; C1776; C1713; J2250; J3370; J1100; J0690 ×2; J2405; J3010; J1885; J1308

== ENCOUNTER → 2024-12-09 | Outpatient (CLI) | payer MEDICARE ==
[2024-12-09 16:46] LABS: Basophils # (A) 0.05 X 10*3/uL (0.00-0.10); Basophils % (A) 0.5 %; Eosinophils # (A) 0.24 X 10*3/uL (0.04-0.35); Eosinophils % (A) 2.2 %; HCT 33.6 % (39.6-50.0); HGB 10.6 g/dL (13.0-17.0); Lymphocytes # (A) 1.09 X 10*3/uL (0.90-5.00); MCH 30.1 pg (27.0-32.0); MCHC 31.5 g/dL (32.0-37.0); MCV 95.5 FL (80.0-97.0); Mean Platelet Volume 12.5 FL (9.5-12.2); Monocytes # (A) 1.05 X 10*3/uL (0.20-1.00); Monocytes % (A) 9.6 %; NRBC Per 100 WBC 0 X 10*3/uL (0.00-0.01); Neutrophils # (A) 8.42 X 10*3/uL (1.80-7.70); Neutrophils % (A) 77.3 %; Platelet Count 160 X 10*3/uL (140-440); RBC 3.52 X 10*6/uL (4.40-5.60); RDW 13.6 % (11.5-14.5); WBC 10.89 X 10*3/uL (4.50-10.00)
[2024-12-09 17:37] LABS: BUN/Creat Ratio 23.55 Ratio (12.00-20.00); Blood Urea Nitrogen 25.9 mg/dL (9.0-27.0); Calcium 8.9 mg/dL (8.7-10.3); Carbon Dioxide 20.8 mmol/L (21.6-31.8); Chloride 109 mmol/L (96-109); Glucose 167 mg/dL (70-110); Potassium 4.2 mmol/L (3.5-5.5); Sodium 141 mmol/L (135-145)
== END | disposition home or self-care (01) ==
LOC: LABWHC1 10:13
PROVIDERS: ATTEND Registered Nurse
DX: D72.829 Elevated white blood cell count, unspecified (principal); Z98.890 Other specified postprocedural states; N17.9 Acute kidney failure, unspecified
CPT/HCPCS: 36415; 80048; 85025

== ENCOUNTER → 2025-01-17 | Outpatient (CLI) | payer MEDICARE ==
--- NOTE | 2025-01-17 10:25 | MR ---
EXAMINATION TYPE: MR Prostate wo/w con DATE OF EXAM: 01/17/2025 7:31 AM COMPARISON: PET/CT 11/28/2024 CLINICAL INDICATION: Male, 74 years old with history of C61 prostate ca; Elevated PSA. Hx prostate c ancer, prostate removed 2008. TECHNIQUE: Multi-planar, multi-sequence imaging of the pelvis is performed prior to and following the uncomplicated administration of bolus intravenous gadolinium. IV Contrast: 8.5 mL Gadobutrol Interpretive Criteria: PI-RADS v2.1 SERUM PSA: October 2024 = 0.Apr = 0.38 SURGICAL PATHOLOGY: No data available. FINDINGS: Prostate gland is surgically absent. Area of concern on prior PET/CT 11/28/2024 is centrally located an d thought to possibly represent the urethra and excreted radiotracer. No enhancing masses definitivel y visualized. Postsurgical changes in this region. SEMINAL VESICLES (SV): Symmetric and unremarkable. PERIPROSTATIC TISSUES: Unremarkable. LYMPH NODES: No enlarged pelvic lymph node. REMAINING PELVIS: Bladder wall is within normal limits given distention. No abnormal free or organized intrapelvic fluid collection. No pathologic bowel dilation or mural thickening. No hernia visualized OSSEOUS STRUCTURES: No suspicious osseous abnormality. IMPRESSION: Area of concern on prior PET/CT 11/28/2024 is centrally located and thought to possibly represent the u rethra and excreted radiotracer. Correlation with serum PSA and continued surveillance recommended. N o suspicious osseous lesion. No lymphadenopathy. [facility], , 01/17/2025 10:23 AM
== END | disposition home or self-care (01) ==
LOC: RADMRIMAIN 06:35
PROVIDERS: ATTEND Radiology Radiation Oncology
DX: C61 Malignant neoplasm of prostate (principal); Z90.79 Acquired absence of other genital organ(s)
CPT/HCPCS: 72197; A9585